=== PATIENT | male | born 1970 | race Caucasian/White ===

== ENCOUNTER 2017-02-18 15:34 | Emergency (ER) | payer BC ==
[2017-02-18 15:46] VITALS: RESP 16; TEMP 97.7
--- NOTE | 2017-02-18 17:35 | PDOC ---
General Adult HPI - General Chief Complaint: General Medical Stated Complaint: FACE PAIN Date Seen by Provider: 02/18/17 Time Seen by Provider: 15:25 Source: POSITIVE: Patient Exam Limitations: POSITIVE: No limitations Nurse's Notes Reviewed & Considered: Yes - History of Present Illness Initial Comment: The patient is a 46-year-old male. He states that for the past 14 hours he has had pain to the right maxillary and ethmoidal area which is radiating down into his right sided dentition. Patient has had marked congestion on the right side of his nose for the past one to 2 days. He states he has a history of chronic sinusitis and a long-standing history of extrinsic allergies. He takes Nasonex nasal spray daily as well as Zyrtec and Beverly. No fevers. No headache. No neck pain. No GI, or neurologic complaints. No rashes or skin changes. Have you received a tetanus shot in the past 10 years?: Yes Body Location Affected: REPORTS: Head Timing: REPORTS: Gradual, Getting Worse Duration: <24 hours Severity: Moderate Quality: REPORTS: "Pain" ("Sinus pain" on right) Context: REPORTS: None Modifying Factors: improves with: Nothing Similar Symptoms Previously: Yes (as above) Recent Care Received: REPORTS: Denies Any Prior Injuries Related to Current Complaint?: No - Patient Home Medications Home Medications: Home Medications Beverly 1 tab PO DAILY 12/14/10 Nasonex 2 sprays INH BID 12/14/10 Cetirizine HCl [Zyrtec] 10 mg PO DAILY 11/16/13 Ibuprofen [Motrin] 400 mg PO PRN 11/16/13 Naproxen Sodium [Aleve] 440 mg PO PRN 11/16/13 Acetaminophen [Tylenol] 500 mg PO PRN PRN 02/18/17 Amox Tr/Potassium Clavulanate [Augmentin 875-125 Tablet] 1 each PO Q12H #20 tablet 02/18/17 - Patient Allergies Allergies/Adverse Reactions: Allergies Allergy/AdvReac Type Severity Reaction Status Date / Time No Known Allergies Allergy Verified 02/18/17 15:35 Past Medical History - heen HEENT History: Denies History Cardiovascular History: Hypertension Respiratory History: Denies History Gastrointestinal History: Denies History Genitourinary History: Denies History Endocrine History: Denies History Musculoskeletal History: Back Pain, Other (please comment) Prosthesis or Implant: No Additional Musculoskeletal History: FELL DOWN STEPS MANY YEARS AGO BUT NO SURGERIES FOR BACK PAIN; HAS OCCASIONAL "BACK SPASMS." Neurological History: Denies History Blood Disorders: Denies History Psychiatric History: Denies History History of Sexually Transmitted Diseases: No Cancer History: Denies History In Past Year Been Physically Harmed or Verbally Threatened: No History of MDRO: No History of Other Communicable Diseases: No Tobacco Use: Current Every Day Smoker Alcohol Use: Rarely Substance Use Type: None Previous Surgical History: No Significant Family History: No pertinent family hx Past Medical History Reviewed: Reviewed - No Changes ROS - Limitations ROS Limitations: No Limitations Constitution: REPORTS: Denies Symptoms Cardiovascular: REPORTS: Denies Cardiac Symptoms Respiratory: REPORTS: Denies Resp Symptoms Neurological: REPORTS: Denies Neuro Symptoms Gastrointestinal: REPORTS: Denies GI Symptoms Endocrine: REPORTS: Denies Symptoms Musculoskeletal: REPORTS: Denies MS Symptoms Genitourinary: REPORTS: Denies Symptoms Eyes: REPORTS: Denies Symptoms ENT: REPORTS: Congestion (Right side), Other (Patient has prominent congestion and swelling of nasal mucosa on the right. On nasal speculum exam there is pertinent drainage from the middle ostia. There is tenderness on percussion over the maxillary and ethmoidal sinus areas on the right.) Skin: REPORTS: Denies Skin Symptoms Lympathic: REPORTS: Denies Lympathic Symptoms Immunologic: POSITIVE: Denies Symptoms Psychiatric: POSITIVE: Denies Psych Symptoms General Adult Exam - General Appearance General Appearance: POSITIVE: Alert, Cooperative, No Acute Distress, No Evidence of Trauma - HEENT HEENT: POSITIVE: Head Inspection Nml, Eyes Inspection Nml, Ears Inspection Nml, Oral/Dental Inspect. Nml, Pharynx Inspect. Nml, PERRL, EOMI. NEGATIVE: Nose Inspection Nml (With some swelling of the nasal mucosa. Speculum exam of the nostrils reveals some purulent discharge from the middle ostia on the right. Prominent nasal congestion on the right. There is tenderness on percussion over the right maxillary and ethmoid sinuses.) - Pupils Pupil Size: 3 mm: Bilateral (PERRLA) - Neck Neck: POSITIVE: Normal Inspection, Thyroid Normal - Respiratory Respiratory: POSITIVE: No Respiratory Distress, Breath Sounds Normal, Chest Non- Tender - Cardiovascular Cardiovascular: POSITIVE: Regular Rate & Rhythm, No Murmur, No Gallop, PMI Normal Peripheral Pulses: Radial (R): 2+, Radial (L): 2+ - Skin Skin: POSITIVE: Normal Color, Warm, Dry, No Rash - Neurological / Psychological Neurological: POSITIVE: Oriented X3, crystal slicer Normal As Tested, Motor Normal, Sensation Normal, 5, 6 Images - Head Head: 1 - Pain on percussion 2 - Pain on percussion General Adult Progress - Patient's Progress Pain Medication Addressed: POSITIVE: Yes (Recommended Advil or Tylenol) School/Work Release Addressed: POSITIVE: Not Applicable Re-Examine Time: 16:00 Status: POSITIVE: Unchanged Antibiotics Given: Yes (Augmentin, 875, twice daily for 10 days) - Consult Counseled: POSITIVE: Patient, RE: DX, RE: Need for F/U Patient Care Time - Estimated PCT Patient Care Time (In Minutes): 25 Vital Signs - Recent Vital Signs Vital Signs: Vital Signs (Last 8 hours) Temp Pulse Resp BP Pulse Ox 02/18/17 15:35 97.7 F 105 H 16 162/98 93 - VS Reviewed Vital Signs Reviewed: Yes Discharge Clinical Impression: Sinusitis Discharge Disposition: Discharged to Home Condition: Fair Prescriptions / Orders: Amox Tr/Potassium Clavulanate [Augmentin 875-125 Tablet] 1 each PO Q12H #20 tablet Patient Instructions Given at Discharge: Sinusitis (ED) Additional Instructions: You have right sided sinusitis. Please take Augmentin, one every 12 hours. Also please continue your Flonase or Nasonex nasal spray and take Zyrtec or Claritin once daily. Return any time if you develop fevers or if condition worsens in any way. Follow-up with your primary care provider. Follow Up With: ANGEL HUERTA [Primary Care Provider] - (Instructions and medications as above. Follow-up with your primary care provider. Return here anytime if condition worsens in any way.)
== END 2017-02-18 16:00 | disposition home or self-care (01) ==
LOC: ER 15:34
DX: J01.00 Acute maxillary sinusitis, unspecified (principal); R09.81 Nasal congestion
CPT/HCPCS: 99282

== ENCOUNTER → 2017-02-20 | Outpatient (CLI) | payer BC ==
--- NOTE | 2017-02-20 19:07 | DI ---
SINUS SERIES, 02/20/2017 4:46 PM: Clinical History: Sinusitis. Previous Exam: None at this facility. 4 views are submitted. The frontal sinuses are hypoplastic normal. The ethmoid, sphenoid, and left ma xillary sinuses are normal. There is mucosal thickening of the right maxillary sinus consistent with sinusitis. The petrous pyramids and mastoid air cells are also normal. Reading: There is mucosal thickening of the right maxillary sinus indicating sinusitis although there is no ai r-fluid level to indicate acute sinusitis. The remaining paranasal sinuses are normal.
== END ==
LOC: MOB RAD 16:48
PROVIDERS: ATTEND Physician Assistant
DX: J32.9 Chronic sinusitis, unspecified (principal); F17.200 Nicotine dependence, unspecified, uncomplicated
CPT/HCPCS: 70220